=== PATIENT | female | born 1990 | race Caucasian/White ===

== ENCOUNTER 2017-04-28 14:31 | Emergency (ER) | payer OTHER ==
[~2017-04-28] VITALS: Ht 170.2 cm; Wt 57.0 kg
[~2017-04-28 14:31] MED LIST: DEPA250T2 PO; LEXA5TAB PO; LITH150C7 PO
[2017-04-28 14:32] VITALS: BP 158/83; PULSE 68; RESP 15; TEMP 98.4; O2SAT 98
[2017-04-28] MEDS ORDERED: DIAZ10TA PO (15:50)
--- NOTE | 2017-04-28 15:54 | PD ---
HPI . abscesses bilateral arms Chief Complaint: Skin Problem Time Seen by Provider: 15:47 Travel History International Travel<30 days: No Contact w/Intl Traveler<30days: No Traveled to known affect area: No History of Present Illness HPI 26 yr old female IV drug user who abuses heroin here with c/o bilateral arm abscesses that she's had for the past several days. Patient tells me that she is injecting drugs and wants to see if she has an infection. She tells me that this morning she was very ill and had some chills. She thinks she may have had a fever. She does not have any pain at this moment. PFSH Past Medical History Bipolar Disorder: Yes Anxiety: Yes Depression: Yes Diminished Hearing: No Psychiatric: Yes (PTSD) Immunizations Current: Yes ?: Unknown Past Surgical History Surgical History: No Previous Surgery Social History Alcohol Use: No Tobacco Use: Yes (1 ppd) Substance Use: Yes (IV heroine) Allergies-Medications (Allergen,Severity, Reaction): Coded Allergies: No Known Allergies (Verified , 12/08/15) Reported Meds & Prescriptions Reported Meds & Active Scripts Active Hibiclens Topical (Chlorhexidine Gluconate) 4% Liq 1 Applic TOPICAL ONCE 5 Days Bactrim DS (Sulfamethoxazole-Trimethoprim) 800-160 Mg Tab 1 Tab PO BID Reported Diazepam 10 Mg Tab 10 Mg PO BID PRN [place] Carbonate 150 Mg Cap 150 Mg PO BID Depakote 250 mg (Divalproex Sodium) 250 Mg Tab 1 Tab PO TID Lexapro (Escitalopram Oxalate) 5 Mg Tab 5 Mg PO DAILY Review of Systems General / Constitutional: No: Fever Eyes: No: Visual changes HENT: No: Headaches Cardiovascular: No: Chest Pain or Discomfort Respiratory: No: Shortness of Breath Gastrointestinal: No: Abdominal Pain Genitourinary: No: Dysuria Musculoskeletal: No: Pain Skin: Positive Other (superficial swelling bilateral arms), No Rash Neurologic: No: Weakness Psychiatric: No: Depression Endocrine: No: Polydipsia Hematologic/Lymphatic: No: Easy Bruising Physical Exam Narrative GENERAL: AAO x 3, no acute distress, Well-nourished, well-developed patient. SKIN: Warm and dry. No visible rashes or bruising. Left forearm with a elevated area of induration measuring approximately 2.5 cm x 1.5 cm without fluctuance, no pointing or drainage. Proximal to this there is a small 1 cm well-circumscribed area of induration without fluctuance, pointing or drainage. Right arm no appreciable abscesses or swelling. Lateral arm with multiple injection sites HEAD: Normocephalic and atraumatic. EYES: No scleral icterus. No injection or drainage. ENT: No nasal drainage noted. Mucous membranes pink. Airway patent. NECK: Supple, trachea midline. No JVD. CARDIOVASCULAR: Regular rate and rhythm without murmurs, gallops, or rubs. RESPIRATORY: Breath sounds equal bilaterally. No accessory muscle use. No rhonchi or rales. GASTROINTESTINAL: Visual exam unremarkable EXTREMITIES: No cyanosis or edema. BACK: No obvious deformity. No CVA tenderness. NEURO: CN II-12 intact PSYCH: AAO x 3, normal affect. Data Data Last Documented VS Vital Signs Date Time Temp Pulse Resp B/P (MAP) Pulse Ox O2 Delivery O2 Flow Rate FiO2 04/28/17 17:28 65 15 148/80 (102) 99 04/28/17 14:32 98.4 Orders Orders Complete Blood Count With Diff (04/28/17 15:49) Comprehensive Metabolic Panel (04/28/17 15:49) Blood Culture (04/28/17 15:49) Iv Access Insert/Monitor (04/28/17 15:49) Ed Urine Pregnancytest Poc (04/28/17 15:54) Labs Laboratory Tests Test 04/28/17 16:00 White Blood Count 11.8 TH/MM3 Red Blood Count 4.86 MIL/MM3 Hemoglobin 15.4 GM/DL Hematocrit 45.3 % Mean Corpuscular Volume 93.3 FL Mean Corpuscular Hemoglobin 31.6 PG Mean Corpuscular Hemoglobin Concent 33.9 % Red Cell Distribution Width 14.1 % Platelet Count 215 TH/MM3 Mean Platelet Volume 8.6 FL Neutrophils (%) (Auto) 56.9 % Lymphocytes (%) (Auto) 31.0 % Monocytes (%) (Auto) 7.1 % Eosinophils (%) (Auto) 4.2 % Basophils (%) (Auto) 0.8 % Neutrophils # (Auto) 6.7 TH/MM3 Lymphocytes # (Auto) 3.7 TH/MM3 Monocytes # (Auto) 0.8 TH/MM3 Eosinophils # (Auto) 0.5 TH/MM3 Basophils # (Auto) 0.1 TH/MM3 CBC Comment DIFF FINAL Differential Comment Blood Urea Nitrogen 11 MG/DL Creatinine 0.79 MG/DL Random Glucose 76 MG/DL Total Protein 8.1 GM/DL Albumin 4.0 GM/DL Calcium Level 9.5 MG/DL Alkaline Phosphatase 88 U/L Aspartate Amino Transf (AST/SGOT) 16 U/L Alanine Aminotransferase (ALT/SGPT) 20 U/L Total Bilirubin 0.4 MG/DL Sodium Level 136 MEQ/L Potassium Level 3.6 MEQ/L Chloride Level 100 MEQ/L Carbon Dioxide Level 27.6 MEQ/L Anion Gap 8 MEQ/L Estimat Glomerular Filtration Rate 88 ML/MIN MDM Medical Decision Making Medical Screen Exam Complete: Yes Emergency Medical Condition: Yes Medical Record Reviewed: Yes Differential Diagnosis IV drug abuse, mild cellulitis, less likely abscess, sepsis Narrative Course 26-year-old female here to have her abscesses assess. On examination there is no abscess that is able to incision and drainage. I've explained this to her at length. She does report possible fever and chills , therefore I will check labs prior to discharging her. If they're within normal limits, I will discharge her home with Bactrim and Hibiclens. patient really wants to leave. Results reviewed. Advised her to return if any worsening of her condition. Laboratory Tests Test 04/28/17 16:00 White Blood Count 11.8 TH/MM3 Red Blood Count 4.86 MIL/MM3 Hemoglobin 15.4 GM/DL Hematocrit 45.3 % Mean Corpuscular Volume 93.3 FL Mean Corpuscular Hemoglobin 31.6 PG Mean Corpuscular Hemoglobin Concent 33.9 % Red Cell Distribution Width 14.1 % Platelet Count 215 TH/MM3 Mean Platelet Volume 8.6 FL Neutrophils (%) (Auto) 56.9 % Lymphocytes (%) (Auto) 31.0 % Monocytes (%) (Auto) 7.1 % Eosinophils (%) (Auto) 4.2 % Basophils (%) (Auto) 0.8 % Neutrophils # (Auto) 6.7 TH/MM3 Lymphocytes # (Auto) 3.7 TH/MM3 Monocytes # (Auto) 0.8 TH/MM3 Eosinophils # (Auto) 0.5 TH/MM3 Basophils # (Auto) 0.1 TH/MM3 CBC Comment DIFF FINAL Differential Comment Blood Urea Nitrogen 11 MG/DL Creatinine 0.79 MG/DL Random Glucose 76 MG/DL Total Protein 8.1 GM/DL Albumin 4.0 GM/DL Calcium Level 9.5 MG/DL Alkaline Phosphatase 88 U/L Aspartate Amino Transf (AST/SGOT) 16 U/L Alanine Aminotransferase (ALT/SGPT) 20 U/L Total Bilirubin 0.4 MG/DL Sodium Level 136 MEQ/L Potassium Level 3.6 MEQ/L Chloride Level 100 MEQ/L Carbon Dioxide Level 27.6 MEQ/L Anion Gap 8 MEQ/L Estimat Glomerular Filtration Rate 88 ML/MIN Patient verbalized understanding of instructions, questions were answered, and thanked me for their care. I advised them if their condition worsens, please return to the nearest emergency room for further care. Diagnosis Primary Impression: Cellulitis of forearm, left Patient Instructions: General Instructions Additional Instructions: Keep area clean and dry.. Watch for signs of worsening infection: fever, redness, swelling, warmth, pus or drainage, red streaks around the cut, and increased pain from the area. Med/Other Pt SpecificInfo: Prescription(s) given Scripts Chlorhexidine Gluconate Topical (Hibiclens Topical) 4% Liq 1 APPLIC TOPICAL ONCE for Skin Cleanser for 5 Days, #118 ML 0 Refills Prov: Albert Julian MD 04/28/17 Sulfamethoxazole-Trimethoprim (Bactrim DS) 800-160 Mg Tab 1 TAB PO BID for Infection, #20 TAB 0 Refills Prov: Albert Julian MD 04/28/17 Disposition: 01 DISCHARGE HOME Condition: Stable Alesia Velez Apr 28, 2017 15:54
[2017-04-28 17:19] LABS: AUTOMATED NEUTROPHIL # 6.7 TH/MM3 (1.8-7.7); BASOPHIL # 0.1 TH/MM3 (0-0.2); BASOPHIL % 0.8 % (0.0-2.0); EOSINOPHIL # 0.5 TH/MM3 (0-0.4); EOSINOPHIL % 4.2 % (0.0-4.0); HEMATOCRIT 45.3 % (35.0-46.0); HEMO FLAGS DIFF FINAL; LYMPHOCYTE # 3.7 TH/MM3 (1.0-4.8); MEAN CELL VOLUME 93.3 FL (80.0-100.0); MEAN CORPUSCULAR HEMOGLOBIN 31.6 PG (27.0-34.0); MEAN CORPUSCULAR HGB CONC 33.9 % (32.0-36.0); MONO % 7.1 % (0.0-8.0); NEUT % 56.9 % (16.0-70.0); PLATELET COUNT 215 TH/MM3 (150-450); RED BLOOD COUNT 4.86 MIL/MM3 (4.00-5.30); RED CELL DISTRIBUTION WIDTH 14.1 % (11.6-17.2); WHITE BLOOD COUNT 11.8 TH/MM3 (4.0-11.0)
[2017-04-28 17:28] VITALS: BP 148/80; PULSE 65; RESP 15; O2SAT 99
[2017-04-28 17:34] LABS: ALT (GPT) 20 U/L (10-53); ANION GAP 8 MEQ/L (5-15); AST (GOT) 16 U/L (15-37); BICARBONATE 27.6 MEQ/L (21.0-32.0); BLOOD UREA NITROGEN 11 MG/DL (7-18); CHLORIDE 100 MEQ/L (98-107); GLOMERULAR FILTRATION RATE 88 ML/MIN (>89); POTASSIUM 3.6 MEQ/L (3.5-5.1); SODIUM (NA) 136 MEQ/L (136-145)
[2017-04-28] MEDS ORDERED: HIBI4LIQ TOPICAL (17:36)
[2017-04-28] MEDS ORDERED: BACT800T5 PO (17:36)
[2017-04-28 17:37] LABS: ALKALINE PHOSPHATASE 88 U/L (45-117); TOTAL BILIRUBIN ADULT 0.4 MG/DL (0.2-1.0)
[2017-05-06] MEDS ORDERED: BACT800T5 PO (12:36)
[2017-05-06] MEDS ORDERED: HIBI4LIQ TOPICAL (12:36)
== END 2017-04-28 17:54 | disposition home or self-care (01) ==
LOC: NEPD 14:31
DX: L03.114 Cellulitis of left upper limb (principal); L02.413 Cutaneous abscess of right upper limb; Z72.0 Tobacco use; F11.10 Opioid abuse, uncomplicated
CPT/HCPCS: 80053; 84703; 85025; 87040; 99284

== ENCOUNTER 2017-05-07 18:34 | Emergency (ER) | payer OTHER ==
[~2017-05-07] VITALS: Ht 170.2 cm; Wt 50.0 kg
[~2017-05-07 18:34] MED LIST changes: +BACT800T5 PO; +DIAZ10TA PO; +HIBI4LIQ TOPICAL
[2017-05-07 18:36] VITALS: BP 166/72; PULSE 92; RESP 20; TEMP 97.9; O2SAT 96
--- NOTE | 2017-05-07 19:26 | PD ---
HPI Chief Complaint: Skin Problem Time Seen by Provider: 19:15 Travel History International Travel<30 days: No Contact w/Intl Traveler<30days: No Traveled to known affect area: No History of Present Illness HPI patient stated she is ivda heroin user, states that she has both of her biceps are red and tender to touch, 7/10, worse with touching, no fever, no n/v/d/ started on bactrim a few days ago. PFSH Past Medical History Bipolar Disorder: Yes Anxiety: Yes Depression: Yes Diminished Hearing: No Psychiatric: Yes (PTSD) Immunizations Current: Yes ?: Not Social History Alcohol Use: No Tobacco Use: Yes (1 ppd) Substance Use: Yes (IV heroine) Allergies-Medications (Allergen,Severity, Reaction): Coded Allergies: No Known Allergies (Verified , 12/08/15) Reported Meds & Prescriptions Reported Meds & Active Scripts Active Clindamycin (Clindamycin HCl) 300 Mg Cap 300 Mg PO TID 10 Days Hibiclens Topical (Chlorhexidine Gluconate) 4% Liq 1 Applic TOPICAL ONCE 5 Days Bactrim DS (Sulfamethoxazole-Trimethoprim) 800-160 Mg Tab 1 Tab PO BID Reported Diazepam 10 Mg Tab 10 Mg PO BID PRN [place] Carbonate 150 Mg Cap 150 Mg PO BID Depakote 250 mg (Divalproex Sodium) 250 Mg Tab 1 Tab PO TID Lexapro (Escitalopram Oxalate) 5 Mg Tab 5 Mg PO DAILY Review of Systems Except as stated in HPI: all other systems reviewed are Neg Skin: Positive Lesions (redness to both biceps) Physical Exam Narrative GENERAL: SKIN: Warm and dry. right bicep has an area just above antecubital fossawith a nickel size induration, nonfluctuant, small drainage at tip, no lad nor streaking....left mid bicep has an oval area of erythema 3x6cm, no streaking, no lad, induration without fluctuance or drainage. noted healed old trackmarks along bilateral forearms. HEAD: Atraumatic. Normocephalic. EYES: Pupils equal and round. No scleral icterus. No injection or drainage. ENT: No nasal bleeding or discharge. Mucous membranes pink and moist. NECK: Trachea midline. No JVD. CARDIOVASCULAR: Regular rate and rhythm. RESPIRATORY: No accessory muscle use. Clear to auscultation. Breath sounds equal bilaterally. GASTROINTESTINAL: Abdomen soft, non-tender, nondistended. Hepatic and splenic margins not palpable. MUSCULOSKELETAL: Extremities without clubbing, cyanosis, or edema. No obvious deformities. NEUROLOGICAL: Awake and alert. No obvious cranial nerve deficits. Motor grossly within normal limits. Five out of 5 muscle strength in the arms and legs. Normal speech. PSYCHIATRIC: Appropriate mood and affect; insight and judgment normal. Data Data Last Documented VS Vital Signs Date Time Temp Pulse Resp B/P (MAP) Pulse Ox O2 Delivery O2 Flow Rate FiO2 05/07/17 18:36 97.9 92 20 166/72 (103) 96 Orders Orders Us Arm Venous Doppler Bilat (05/07/17 19:16) Clindamycin Inj (Cleocin Inj) (05/07/17 19:30) MDM Medical Decision Making Medical Screen Exam Complete: Yes Emergency Medical Condition: Yes Medical Record Reviewed: Yes Differential Diagnosis abscess v dvt v cellulitis Narrative Course upon evaluation, no major abscess that requires I&D found, patient's ultrasound neg for dvt, will d/c on additional abx and advised patient to stop using ivda as this is the source of all her infections, and that luckily no major adverse effects have occurred YET....patient voiced understanding and stated that she will begin rehab process. AFTER MAKING PATIENT AWARE OF FINDINGS (PATIENT WAS ON CELL PHONE) FOR SOME REASON PATIENT WAS IN A MARLEY TO LEAVE, SO MUCH SO SHE DECLINED GETTING HER ABX IM THAT WAS ORDERED AND ON ITS WAY FROM PHARMACY. PATIENT IS AWARE OF NEED FOR DOUBLE COVERAGE FOR MRSA AND NEED FOR FOLLOW UP WITH [facility]. HOWEVER UNLIKELY THAT SHE WILL SINCE SHE SIGNED OUT AMA...BUT EVERY EFFORT MADE TO REACH THE PATIENT AND PROVIDE THE BEST CARE. Diagnosis Primary Impression: bilateral bicep cellulitis Additional Impressions: Superficial venous thrombosis of left arm AMA Referrals: [facility] FOR FURTHER FOLLOW UP AND CARE Patient Instructions: Cellulitis (DC), General Instructions Scripts Clindamycin (Clindamycin) 300 Mg Cap 300 MG PO TID for Infection for 10 Days, #30 CAP 0 Refills Prov: Ankur Mike MD 05/07/17 Disposition: 01 DISCHARGE HOME Condition: Stable Ankur Mike MD May 07, 2017 19:26
[2017-05-07] MEDS ORDERED: CLINDAMYCIN PHOS 600 MG/4 ML VIAL IM ONE (19:30)
[2017-05-07] MEDS ORDERED: CLIN1CAP6 PO (20:32)
--- NOTE | 2017-05-07 20:34 | RADRPT ---
EXAM DATE/TIME: 05/07/2017 19:34 [facility] COMPARISON: No previous studies available for comparison. INDICATIONS : Bilateral arm swelling, redness and pain. MEDICAL HISTORY : IV drug abuse. PTSD. Bipolar disorder. Depression. Anxiety. SURGICAL HISTORY : None. ENCOUNTER: Initial ACUITY: 2 day PAIN SCORE: 8/10 LOCATION: Bilateral arms. FINDINGS: RIGHT UPPER EXTREMITY: There is spontaneous flow documented in the brachial, basilic, cephalic, axillary, and subclavian vei ns. The vessels are compressible and augmentation response is documented. No filling defects are se en. The flow is phasic with respiration. Direction of flow in the jugular vein is caudal. There is an approximately 1 cm ill-defined fluid collection in the subcutaneous fat anteriorly o f the distal right arm, just above the antecubital fossa. LEFT UPPER EXTREMITY: There is thrombus in the left cephalic vein at the level of the proximal forearm. Other venous tribut lisa of the left upper extremity are patent.. CONCLUSION: 1. Suspected early subcutaneous abscess formation just above the right antecubital fossa. 2. Superficial thrombosis of the left upper extremity involving the cephalic vein. Carlton Renteria MD on May 07, 2017 at 20:29 Board Certified Radiologist. This report was verified electronically.
== END 2017-05-07 21:07 | disposition home or self-care (01) ==
LOC: NEPC 18:34
DX: L03.114 Cellulitis of left upper limb (principal); L03.113 Cellulitis of right upper limb; I82.612 Acute embolism and thrombosis of superficial veins of left upper extremity
CPT/HCPCS: 93970; 96372